=== PATIENT | female | born 1980 | race Caucasian/White ===

== ENCOUNTER 2019-02-27 13:59 | Inpatient (IN) ==
--- NOTE | 2019-02-27 14:05 | Emergency Department Note ---
Disposition Clinical Impression: IVDU (intravenous drug user) Sepsis Qualifiers: Sepsis type: sepsis due to unspecified organism Sepsis acute organ dysfunction status: unspecified Qualified Code(s): A41.9 - Sepsis, unspecified organism UTI (urinary tract infection) Qualifiers: Urinary tract infection type: acute cystitis Hematuria presence: with hematuria Qualified Code(s): N30.01 - Acute cystitis with hematuria Endocarditis Qualifiers: Endocarditis type: unspecified Chronicity: acute Qualified Code(s): I33.9 - Acute and subacute endocarditis, unspecified Disposition: Admitted As Inpatient Condition: Fair Forms: ED Satisfaction Letter, Work/School Release Time of Disposition: 18:40 General Adult HPI - General Stated complaint: vomiting Time Seen by Provider: 02/27/19 14:05 Source: patient Mode of arrival: ambulatory Limitations: no limitations Nursing Notes Reviewed: Yes Vital Signs Reviewed: Yes - History of Present Illness HPI Narrative: Patient is a 38-year-old female presenting with fever. Patient is known history of IV drug use specifically methamphetamines and heroin. Patient states for the past 4-5 days she has been having subjective fevers and chills, she has also been having nausea with vomiting, no hematemesis, she also describes diffuse abdominal pain greatest in the epigastric region described as sharp shooting in nature. She also has been having dysuria with urgency and frequency. No hematuria that she is aware of. She also describes diffuse chest pain and shortness of breath which at times makes it difficult for her to breathe. She also describes pleuritic pain. Last known methamphetamine IV drug use was actually 4 days ago. She denies alcohol use. She denies history of endocarditis in the past. No history of back pain. She states right now she has a mild headache and feels though her heart is racing. She has had mild cough with mild sputum production. She does smoke cigarettes. No neck pain. No history of meningitis. - Related Data Home Medications Medication Instructions Recorded Confirmed Suboxone 04/20/15 04/20/15 Allergies Allergy/AdvReac Type Severity Reaction Status Date / Time nitrofurantoin Allergy See Verified 02/27/19 15:22 [From Macrobid] Comments All systems ED: reviewed and negative except as stated. Review of Systems: As Per HPI Constitutional: Reports: fever, chills ENT ED: Denies: congestion Cardiovascular: Reports: chest pain, palpitations, dyspnea on exertion. Denies: syncope Respiratory: Reports: cough, dyspnea, sputum production. Denies: wheezes, hemoptysis Gastrointestinal: Reports: abdominal pain, nausea, vomiting. Denies: diarrhea, hematemesis, melena, hematochezia Genitourinary: Reports: urgency, dysuria, frequency. Denies: hematuria, discharge Musculoskeletal: Denies: back pain, neck pain Integumentary: Denies: rash Neurological: Reports: headache. Denies: weakness, numbness, paresthesias, confusion Endocrine: Reports: fatigue Past Medical History - Past Medical History Medical history: Reports: no medical history Psychiatric history: Reports: anxiety, bipolar, depression - Social History Smoking Status: Current every day smoker Smokeless Tobacco Status: No Alcohol use: Reports: none Drug use: Reports: none Physical Exam - General Limitations: no limitations General appearance: alert, anxious - Head Head exam: atraumatic, normocephalic, normal inspection - Eye Eye exam: Present: PERRL, EOMI - ENT ENT exam: mucous membranes dry - Neck Neck exam: Present: normal inspection, trachea midline - Chest Chest inspection: Present: normal inspection, symmetric chest wall rise - Respiratory Respiratory exam: Present: other (Patient with decreased breath sounds throughout, mild scattered wheezing without crackles) - Cardiovascular Cardiovascular exam: Present: normal rhythm, tachycardia - Abdominal Exam Abdominal exam: Present: soft, tenderness (To the midepigastric region, and diffusely throughout, no guarding, distention or rebound, no rigidity) - Extremities Exam Extremities exam: Present: normal inspection, full ROM. Absent: tenderness, pedal edema - Expanded Lower Extremity Exam Neurovascular/Tendon exam: Absent: motor deficit, sensory deficit, tendon deficit - Back Exam Back exam: Present: normal inspection, full ROM. Absent: tenderness - Neurological Exam Neurological exam: Present: alert, oriented X3 - Psychiatric Psychiatric exam: Present: normal mood, anxious - Skin Skin exam: Present: warm, dry, intact, normal color. Absent: rash, diaphoresis Course Vital Signs Temperature 99.7 F H 02/27/19 14:03 Pulse Rate 97 02/27/19 14:03 Respiratory Rate 18 02/27/19 14:03 Blood Pressure 109/55 02/27/19 14:03 O2 Sat by Pulse Oximetry 100 02/27/19 14:03 Temperature 99.7 F H 02/27/19 14:03 Pulse Rate 90 02/27/19 17:36 Respiratory Rate 16 02/27/19 17:36 Blood Pressure 100/58 02/27/19 17:36 O2 Sat by Pulse Oximetry 97 02/27/19 17:36 Oxygen Delivery Oxygen Delivery Room Air Medical Decision Making - MDM Narrative Medical decision making narrative: Patient is a 38-year-old female who is presenting with fever. Patient has known history of IV drug use. Patient has multiple complaints on examination most notably abdominal pain, nausea, vomiting and chest pain with shortness of breath. Patient has no history of endocarditis. Patient has no meningeal signs on examination. She is afebrile on arrival. She is tachycardic. She is normotensive. Patient was given a total of 30 mL/kg bolus as well as blood cultures drawn initially. Initial concern for endocarditis as well as intra- abdominal etiology, therefore vancomycin and Zosyn was started. Lactic acid was performed. CTA to rule out septic emboli was performed, no sign of pulmonary embolus or more intra-cardio or pulmonary etiology at this point. No sign of pneumonia. CT of the abdomen and pelvis with IV contrast was performed which shows improvement of gallbladder wall thickening, she has no right upper quadrant abdominal pain on my examination, negative Carpenter sign. As it is noted to be improved from prior, did not feel as though right upper quadrant ultrasound at this time was emergent. Laboratory work shows leukocytosis at 21, she also has acute kidney injury with elevated serum creatinine. Patient's LFT and lipase are within normal limits. Patient does show to have a urinary tract infection on urinalysis. Patient is covered with Zosyn for this. Patient is this point in time will be admitted for endocarditis until proven otherwise, urinary tract infection. No time has her blood pressure been hypotensive, she has not gone into septic shock. Patient will be admitted to the hospitalist service, patient has otherwise remained stable here in the ER. - Medical Records Medical records reviewed: Yes I reviewed the patient's medical records. - Lab Data Lab results reviewed: Yes I reviewed the patient's lab results. Result diagrams: 02/27/19 15:04 02/27/19 15:04 Lab Results 02/27/19 02/27/19 02/27/19 Range/Units 15:04 15:04 15:04 WBC 21.5 H (4.3-11.1) K/mcL RBC 3.67 L (3.82-4.97) M/mcL Hgb 10.1 L (11.5-15.4) g/dL Hct 30.8 L (35.3-44.9) % MCV 83.9 (83.0-100.0) fL MCH 27.5 L (28.0-33.3) pg MCHC 32.8 (31.6-35.5) g/dL RDW 13.7 (11.5-14.5) % Plt Count 226 (140-400) K/mcL MPV 10.3 (9.4-12.4) fL Seg Neutrophils % 78.0 % Band Neutrophils % 12.0 H (0-4) % Lymphocytes % 10.0 % Neutrophils # 19.4 H (1.6-8.9) K/mcL Lymphocytes # 2.2 (0.6-4.6) K/mcL Platelet Estimate Normal (Normal) PT 15.0 H (9.4-12.1) Seconds INR 1.3 APTT 34.9 (26.0-36.0) Seconds Sodium 130 L (136-145) mEq/L Potassium 3.7 (3.5-5.1) mEq/L Chloride 100 (98-107) mEq/L Carbon Dioxide 24 (23-29) mEq/L BUN 23 H (6-20) mg/dL Creatinine 1.26 H (0.60-1.20) mg/dL Est GFR ( Amer) 57 L (> 60) Est GFR (Non-Af Amer) 47 L (> 60) BUN/Creatinine Ratio 18 (6-26) Glucose 99 (70-105) mg/dL Calculated Osmolality 274 L (280-300) Lactic Acid (0.5-2.2) mmol/L Calcium 8.1 L (8.6-10.3) mg/dL Phosphorus 2.1 L (2.7-4.5) mg/dL Magnesium 1.7 (1.6-2.6) mg/dL Total Bilirubin 0.6 (0.3-1.0) mg/dL Direct Bilirubin 0.2 (0.0-0.2) mg/dL Indirect Bilirubin 0.4 (0.0-1.2) mg/dL AST 29 (13-39) Units/L ALT 24 (7-52) Units/L Alkaline Phosphatase 119 H (34-104) Units/L Troponin I 0.04 H* (< 0.04) ng/mL Serum Total Protein 6.2 L (6.4-8.9) g/dL Albumin 3.1 L (3.5-5.7) g/dL Globulin 3.1 (2.4-3.5) g/dL Albumin/Globulin Ratio 1.0 L (1.1-2.2) Lipase 13 (11-82) Units/L Urine Color (Yellow) Urine Clarity (Clear) Urine pH (5.0-8.0) pH Units Ur Specific [place] (1.010-1.025) Urine Protein (Neg-Trace) mg/dL Urine Glucose (UA) (Normal) mg/dL Urine Ketones (Negative) mg/dL Urine Blood (Negative) Urine Nitrite (Negative) Urine Bilirubin (Negative) Urine Urobilinogen (Normal) mg/dL Ur Leukocyte Esterase (Negative) Urine Microscopic RBC (0-3) per hpf Urine Microscopic WBC (0-3) per hpf Ur Squamous Epith Cells (None-Few) per lpf Urine Bacteria (None-Few) per hpf Hyaline Casts (None-Few) per lpf Ur Culture Indicated? (NO) Urine Test (Negative) 02/27/19 02/27/19 02/27/19 Range/Units 15:04 16:30 16:30 WBC (4.3-11.1) K/mcL RBC (3.82-4.97) M/mcL Hgb (11.5-15.4) g/dL Hct (35.3-44.9) % MCV (83.0-100.0) fL MCH (28.0-33.3) pg MCHC (31.6-35.5) g/dL RDW (11.5-14.5) % Plt Count (140-400) K/mcL MPV (9.4-12.4) fL Seg Neutrophils % % Band Neutrophils % (0-4) % Lymphocytes % % Neutrophils # (1.6-8.9) K/mcL Lymphocytes # (0.6-4.6) K/mcL Platelet Estimate (Normal) PT (9.4-12.1) Seconds INR APTT (26.0-36.0) Seconds Sodium (136-145) mEq/L Potassium (3.5-5.1) mEq/L Chloride (98-107) mEq/L Carbon Dioxide (23-29) mEq/L BUN (6-20) mg/dL Creatinine (0.60-1.20) mg/dL Est GFR ( Amer) (> 60) Est GFR (Non-Af Amer) (> 60) BUN/Creatinine Ratio (6-26) Glucose (70-105) mg/dL Calculated Osmolality (280-300) Lactic Acid 2.0 (0.5-2.2) mmol/L Calcium (8.6-10.3) mg/dL Phosphorus (2.7-4.5) mg/dL Magnesium (1.6-2.6) mg/dL Total Bilirubin (0.3-1.0) mg/dL Direct Bilirubin (0.0-0.2) mg/dL Indirect Bilirubin (0.0-1.2) mg/dL AST (13-39) Units/L ALT (7-52) Units/L Alkaline Phosphatase (34-104) Units/L Troponin I (< 0.04) ng/mL Serum Total Protein (6.4-8.9) g/dL Albumin (3.5-5.7) g/dL Globulin (2.4-3.5) g/dL Albumin/Globulin Ratio (1.1-2.2) Lipase (11-82) Units/L Urine Color Yellow (Yellow) Urine Clarity Cloudy A (Clear) Urine pH 6.5 (5.0-8.0) pH Units Ur Specific [place] 1.013 (1.010-1.025) Urine Protein 100 H (Neg-Trace) mg/dL Urine Glucose (UA) Normal (Normal) mg/dL Urine Ketones Negative (Negative) mg/dL Urine Blood Small H (Negative) Urine Nitrite Positive A (Negative) Urine Bilirubin Negative (Negative) Urine Urobilinogen Normal (Normal) mg/dL Ur Leukocyte Esterase Large H (Negative) Urine Microscopic RBC 0-3 (0-3) per hpf Urine Microscopic WBC TNTC H (0-3) per hpf Ur Squamous Epith Cells Moderate H (None-Few) per lpf Urine Bacteria Many H (None-Few) per hpf Hyaline Casts None Seen (None-Few) per lpf Ur Culture Indicated? YES A (NO) Urine Test Negative (Negative) - Radiology Data Radiology results reviewed: Yes I reviewed the patient's radiology results. Chest CTA 02/27/19 17:04 IMPRESSION: Unremarkable CTA chest with no evidence of pulmonary embolism or acute pulmonary abnormality. D/ / Diya Ruano MD / Diya Ruano MD Interpreting Provider: Diya Ruano MD Abdomen/Pelvis CT 02/27/19 17:16 IMPRESSION: Previously visualized gallbladder wall thickening and edema has improved but still present. No biliary dilatation. D/ / Meg Hester MD / Meg Hester MD Interpreting Provider: Meg Hester MD - EKG Data EKG #1 EKG attestation: Yes I reviewed and interpreted this EKG. EKG results narrative: EKG performed at 1440 ventricular rate of 89, regular rhythm, normal axis, no ST segment elevation, depression or T-wave changes. Intervals within normal limits.
[2019-02-27] MEDS ORDERED: Isovue-370 500 ML BOTTLE IVP ONE ×2 (14:29→16:18)
[2019-02-27] MEDS ORDERED: Ondansetron 4 MG/2 ML VIAL IVP ONE (14:29)
[2019-02-27] MEDS ORDERED: Piperacillin/Tazobactam 3.375 GM in 0.9 % Sodium Chloride Mini Bag 100 ML IVPB ONE (14:29)
[2019-02-27] MEDS: 0.9 % Sodium Chloride 1,000 ML IVC SCH ×3 (14:45→22:54)
[2019-02-27 15:32] LABS: Hematocrit 30.8 % (35.3-44.9); Hemoglobin 10.1 g/dL (11.5-15.4); Mean Corpuscular HGB Conc 32.8 g/dL (31.6-35.5); Mean Corpuscular Hemoglobin 27.5 pg (28.0-33.3); Mean Corpuscular Volume 83.9 fL (83.0-100.0); Mean Platelet Volume 10.3 fL (9.4-12.4); Platelet Count 226 K/mcL (140-400); Red Blood Count 3.67 M/mcL (3.82-4.97); Red Cell Distribution Width 13.7 % (11.5-14.5); White Blood Count 21.5 K/mcL (4.3-11.1)
[2019-02-27 15:45] LABS: INR 1.3
[2019-02-27 15:48] LABS: Activated Partial Thrombo Time 34.9 Seconds (26.0-36.0)
[2019-02-27 15:53] LABS: Albumin 3.1 g/dL (3.5-5.7); Bilirubin,Direct 0.2 mg/dL (0.0-0.2); Bilirubin,Indirect 0.4 mg/dL (0.0-1.2); Bilirubin,Total 0.6 mg/dL (0.3-1.0); Calcium 8.1 mg/dL (8.6-10.3); Globulin 3.1 g/dL (2.4-3.5); Magnesium 1.7 mg/dL (1.6-2.6); Phosphorous 2.1 mg/dL (2.7-4.5); Potassium 3.7 mEq/L (3.5-5.1); Total Protein 6.2 g/dL (6.4-8.9)
[2019-02-27 15:54] LABS: Troponin I 0.04 ng/mL (< 0.04)
[2019-02-27 16:02] LABS: Lymphocytes # 2.2 K/mcL (0.6-4.6); Neutrophils # 19.4 K/mcL (1.6-8.9); Platelet Estimate Normal (Normal)
--- NOTE | 2019-02-27 16:05 | Emergency Department Note ---
Disposition Clinical Impression: IVDU (intravenous drug user) Sepsis Qualifiers: Sepsis type: sepsis due to unspecified organism Sepsis acute organ dysfunction status: unspecified Qualified Code(s): A41.9 - Sepsis, unspecified organism UTI (urinary tract infection) Qualifiers: Urinary tract infection type: acute cystitis Hematuria presence: with hematuria Qualified Code(s): N30.01 - Acute cystitis with hematuria Endocarditis Qualifiers: Endocarditis type: unspecified Chronicity: acute Qualified Code(s): I33.9 - Acute and subacute endocarditis, unspecified Disposition: Admitted As Inpatient Condition: Fair Time of Disposition: 18:40 General Adult HPI - General Chief complaint: ED Abdominal Pain Stated complaint: vomiting Time Seen by Provider: 02/27/19 14:05 Source: patient, EMS Limitations: no limitations - History of Present Illness Pain Scale: 10 - Related Data Home Medications Medication Instructions Recorded Confirmed Buprenorphine HCl/Naloxone HCl 1 each SL BID 02/27/19 02/27/19 [Suboxone 8 mg-2 mg Sl Film] Allergies Allergy/AdvReac Type Severity Reaction Status Date / Time nitrofurantoin Allergy See Verified 02/27/19 15:22 [From Macrobid] Comments Past Medical History - Past Medical History Medical history: Reports: hepatitis Psychiatric history: Reports: anxiety, bipolar, depression - Social History Smoking Status: Current every day smoker Smokeless Tobacco Status: No Alcohol use: Reports: none Drug use: Reports: methamphetamine, IV Drug Use Physical Exam - General Limitations: no limitations General appearance: alert Course Vital Signs Temperature 99.7 F H 02/27/19 14:03 Pulse Rate 97 02/27/19 14:03 Respiratory Rate 18 02/27/19 14:03 Blood Pressure 109/55 02/27/19 14:03 O2 Sat by Pulse Oximetry 100 02/27/19 14:03 Temperature 101.7 F H 02/27/19 20:51 Pulse Rate 95 02/27/19 20:51 Respiratory Rate 26 02/27/19 20:51 Blood Pressure 91/55 02/27/19 20:51 O2 Sat by Pulse Oximetry 95 02/27/19 22:56 Oxygen Delivery Oxygen Delivery Room Air Medical Decision Making - Lab Data Result diagrams: 02/27/19 15:04 02/27/19 15:04 Lab Results 02/27/19 02/27/19 02/27/19 Range/Units 15:04 15:04 15:04 WBC 21.5 H (4.3-11.1) K/mcL RBC 3.67 L (3.82-4.97) M/mcL Hgb 10.1 L (11.5-15.4) g/dL Hct 30.8 L (35.3-44.9) % MCV 83.9 (83.0-100.0) fL MCH 27.5 L (28.0-33.3) pg MCHC 32.8 (31.6-35.5) g/dL RDW 13.7 (11.5-14.5) % Plt Count 226 (140-400) K/mcL MPV 10.3 (9.4-12.4) fL Seg Neutrophils % 78.0 % Band Neutrophils % 12.0 H (0-4) % Lymphocytes % 10.0 % Neutrophils # 19.4 H (1.6-8.9) K/mcL Lymphocytes # 2.2 (0.6-4.6) K/mcL Platelet Estimate Normal (Normal) PT 15.0 H (9.4-12.1) Seconds INR 1.3 APTT 34.9 (26.0-36.0) Seconds Sodium 130 L (136-145) mEq/L Potassium 3.7 (3.5-5.1) mEq/L Chloride 100 (98-107) mEq/L Carbon Dioxide 24 (23-29) mEq/L BUN 23 H (6-20) mg/dL Creatinine 1.26 H (0.60-1.20) mg/dL Est GFR ( Amer) 57 L (> 60) Est GFR (Non-Af Amer) 47 L (> 60) BUN/Creatinine Ratio 18 (6-26) Glucose 99 (70-105) mg/dL Calculated Osmolality 274 L (280-300) Lactic Acid (0.5-2.2) mmol/L Calcium 8.1 L (8.6-10.3) mg/dL Phosphorus 2.1 L (2.7-4.5) mg/dL Magnesium 1.7 (1.6-2.6) mg/dL Total Bilirubin 0.6 (0.3-1.0) mg/dL Direct Bilirubin 0.2 (0.0-0.2) mg/dL Indirect Bilirubin 0.4 (0.0-1.2) mg/dL AST 29 (13-39) Units/L ALT 24 (7-52) Units/L Alkaline Phosphatase 119 H (34-104) Units/L Troponin I 0.04 H* (< 0.04) ng/mL Serum Total Protein 6.2 L (6.4-8.9) g/dL Albumin 3.1 L (3.5-5.7) g/dL Globulin 3.1 (2.4-3.5) g/dL Albumin/Globulin Ratio 1.0 L (1.1-2.2) Lipase 13 (11-82) Units/L Urine Color (Yellow) Urine Clarity (Clear) Urine pH (5.0-8.0) pH Units Ur Specific [place] (1.010-1.025) Urine Protein (Neg-Trace) mg/dL Urine Glucose (UA) (Normal) mg/dL Urine Ketones (Negative) mg/dL Urine Blood (Negative) Urine Nitrite (Negative) Urine Bilirubin (Negative) Urine Urobilinogen (Normal) mg/dL Ur Leukocyte Esterase (Negative) Urine Microscopic RBC (0-3) per hpf Urine Microscopic WBC (0-3) per hpf Ur Squamous Epith Cells (None-Few) per lpf Urine Bacteria (None-Few) per hpf Hyaline Casts (None-Few) per lpf Ur Culture Indicated? (NO) Urine Test (Negative) 02/27/19 02/27/19 02/27/19 Range/Units 15:04 16:30 16:30 WBC (4.3-11.1) K/mcL RBC (3.82-4.97) M/mcL Hgb (11.5-15.4) g/dL Hct (35.3-44.9) % MCV (83.0-100.0) fL MCH (28.0-33.3) pg MCHC (31.6-35.5) g/dL RDW (11.5-14.5) % Plt Count (140-400) K/mcL MPV (9.4-12.4) fL Seg Neutrophils % % Band Neutrophils % (0-4) % Lymphocytes % % Neutrophils # (1.6-8.9) K/mcL Lymphocytes # (0.6-4.6) K/mcL Platelet Estimate (Normal) PT (9.4-12.1) Seconds INR APTT (26.0-36.0) Seconds Sodium (136-145) mEq/L Potassium (3.5-5.1) mEq/L Chloride (98-107) mEq/L Carbon Dioxide (23-29) mEq/L BUN (6-20) mg/dL Creatinine (0.60-1.20) mg/dL Est GFR ( Amer) (> 60) Est GFR (Non-Af Amer) (> 60) BUN/Creatinine Ratio (6-26) Glucose (70-105) mg/dL Calculated Osmolality (280-300) Lactic Acid 2.0 (0.5-2.2) mmol/L Calcium (8.6-10.3) mg/dL Phosphorus (2.7-4.5) mg/dL Magnesium (1.6-2.6) mg/dL Total Bilirubin (0.3-1.0) mg/dL Direct Bilirubin (0.0-0.2) mg/dL Indirect Bilirubin (0.0-1.2) mg/dL AST (13-39) Units/L ALT (7-52) Units/L Alkaline Phosphatase (34-104) Units/L Troponin I (< 0.04) ng/mL Serum Total Protein (6.4-8.9) g/dL Albumin (3.5-5.7) g/dL Globulin (2.4-3.5) g/dL Albumin/Globulin Ratio (1.1-2.2) Lipase (11-82) Units/L Urine Color Yellow (Yellow) Urine Clarity Cloudy A (Clear) Urine pH 6.5 (5.0-8.0) pH Units Ur Specific [place] 1.013 (1.010-1.025) Urine Protein 100 H (Neg-Trace) mg/dL Urine Glucose (UA) Normal (Normal) mg/dL Urine Ketones Negative (Negative) mg/dL Urine Blood Small H (Negative) Urine Nitrite Positive A (Negative) Urine Bilirubin Negative (Negative) Urine Urobilinogen Normal (Normal) mg/dL Ur Leukocyte Esterase Large H (Negative) Urine Microscopic RBC 0-3 (0-3) per hpf Urine Microscopic WBC TNTC H (0-3) per hpf Ur Squamous Epith Cells Moderate H (None-Few) per lpf Urine Bacteria Many H (None-Few) per hpf Hyaline Casts None Seen (None-Few) per lpf Ur Culture Indicated? YES A (NO) Urine Test Negative (Negative) Attestation Statement - Attestation Attestation: I examined this patient and my medical decision-making was reviewed with the Resident Physician. I agree with the documented findings, disposition and treatment plan as described except to the extent set forth below. Patient 38-year-old female presents to start with chief complaint of vomiting and generalized malaise. The patient reports she has a IV drug user and last used intravenous methamphetamine approximal 4 days ago. Patient states that she has had multiple episodes of nausea and vomiting Exam patient's awake alert no acute distress although does appear ill. Medical decision management patient underwent laboratory testing and imaging and the plan admit the patient to the hospital service for endocarditis patient was started on broad-spectrum antibiotic coverage in the ER. I personally supervised and was present for the morgan/critical portions of the following procedures completed by the resident:EKG.
[2019-02-27] MEDS ORDERED: Calcium Gluconate 1gm/50mL 1 GM/50 ML BAG IVPB ONE ×2 (16:18→18:50)
[2019-02-27 16:47] LABS: Bilirubin,Urine Negative (Negative); Blood,Urine Small (Negative); Clarity,Urine Cloudy (Clear); Color,Urine Yellow (Yellow); Glucose,Urine (UA) Normal (Normal); Ketones,Urine Negative (Negative); Leukocyte Esterase,Urine Large (Negative); Nitrite,Urine Positive (Negative); PH,Urine 6.5 pH Units (5.0-8.0); Protein,Urine 100 mg/dL (Neg-Trace); Specific Gravity,Urine 1.013 (1.010-1.025); Urobilinogen,Urine Normal (Normal)
[2019-02-27 16:49] LABS: Bacteria,Urine Many per hpf (None-Few); Hyaline Casts,Urine None Seen per lpf (None-Few); WBC,Urine TNTC per hpf (0-3)
[2019-02-27 17:19] LABS: Squamous Epithelial Cell,Urine Moderate per lpf (None-Few)
[2019-02-27 17:20] LABS: RBC,Urine 0-3 per hpf (0-3)
[2019-02-27] MEDS ORDERED: Aspirin 81 MG TAB.CHEW PO ONE (17:38)
--- NOTE | 2019-02-27 20:18 | Internal Med History&Physical ---
<Sherley Khalil - Last Filed: 02/27/19 22:09> Date of Encounter: 02/27/19 Time of Encounter: 20:16 Internal Medicine - H&P: HPI Chief complaint: fever and body aches Admitted From: Emergency Dept Plans for Post Hospital Care: Home History of present illness: Ms. Etienne is a 38 year old female with past medical history of hepatitis A, B, C, IV drug use who presented to [facility] complaining of fever in body aches. She reports that symptoms started 4 days ago. She does not know her fever temperature. Additionally she reports having some chills, shortness of breath, nausea, abdominal pain, malaise. She does have chest pain diffuse across her chest with no other radiation. Taking a deep breath worsens the pain. Sitting forward improves the pain. She has dysuria with foul-smelling urine and darker colored urine. Denies sick contacts or recent hospitalizations. She admits to using methamphetamines and IV drug use. She last injected methamphetamines 4 days ago. She mostly injects in her hands. She has never been diagnosed with endocarditis, bacteremia, or skin infection secondary to her IV drug use. She is a current smoker. She is a full code. Initial vitals in ED: 99.7F, HR 97, RR 18, BP 109/55, SpO2 100% on room air. WBC 21.5, hemoglobin 10.1, sodium 130, creatinine 1.26, osmolality 274, phosphorus 2.1, calcium 8.1, lactic acid 2.0, total bilirubin 2.6, alkaline phosphatase 119, troponin 0.04, lipase 13. Urinalysis with nitrite, large leukocyte esterase, WBC TNTC. -Chest CTA negative for pulmonary embolism, unremarkable. -Abdomen/pelvis CT showing gallbladder wall thickening and edema improved from prior but still present. No biliary dilatation. In the ED she was given IVF, Zosyn, vancomycin, calcium gluconate. Blood culture and urine cultures were collected. Past Med Surg Social Fam HX - Past Medical History Attestation: Yes The following information was validated with the patient. Source: patient Medical history: hepatitis Additional medical history: Hep A,B,C Psychiatric history: anxiety, bipolar, depression - Past Surgical History Surgical History: non-contributory Additional surgical history: tubal - Social History Smoking Status: Current every day smoker Smokeless Tobacco Status: No Alcohol use: none Drug use: methamphetamine, IV Drug Use Internal Medicine - H&P: Meds Buprenorphine HCl/Naloxone HCl [Suboxone 8 mg-2 mg Sl Film] 1 each SL BID 02/27/19 [History] Allergy/AdvReac Type Severity Reaction Status Date / Time nitrofurantoin Allergy See Verified 02/27/19 15:22 [From Macrobid] Comments All Systems PM: A 10-system review of systems was performed and is negative for pertinent findings except as documented above in the HPI. - Constitutional Constitutional: chills, fatigue, fever(s), malaise - EENT Eyes: no change in vision - Cardiovascular Cardiovascular ROS IM: chest pain, no dyspnea on exertion, no edema, no palpitations, no syncope - Respiratory Respiratory: dyspnea, no cough, no wheezing, no excessive phlegm production - Gastrointestinal Gastrointestinal: abdominal pain, nausea, no diarrhea, no vomiting - Genitourinary Genitourinary: dysuria, no urinary frequency - Musculoskeletal Musculoskeletal ROS IM: muscle cramps, myalgias, no joint swelling - Integumentary Integumentary IM: no rash, no skin ulcer - Neurological Neurological ROS: no dizziness, no frequent falls, no headache(s) - Psychiatric Psychiatric: no confusion - Constitutional Vitals: Temp Pulse Resp BP Pulse Ox 99.7 F H 90 16 100/58 97 02/27/19 14:03 02/27/19 17:36 02/27/19 17:36 02/27/19 17:36 02/27/19 17:36 Exam: Gen.: Vitals noted. No acute distress. AAOx3 HEENT: oropharynx clear, Normocephalic, atraumatic Neck: Supple. No adenopathy. Cardiac: RRR, no murmur, +S1/S2 Pulmonary: CTA bilaterally, no wheezes, rales or rhonchi, equal chest expansion Abdomen: soft, tender epigastric, LLQ, RUQ, Bowel sounds noted, no guarding Back: b/l CVA tender MSK: ROM intact, no joint swelling noted Extremities: no BLE edema, nontender calf, no cyanosis or clubbing Neuro: A&Ox3, moves all extremities, no focal deficits Psych: Appropriate mood and behavior Internal Med - H&P Results - Labs CBC & Chem 7: 02/27/19 15:04 02/27/19 15:04 Labs: Short CBC 02/27/19 Range/Units 15:04 WBC 21.5 H (4.3-11.1) K/mcL Hgb 10.1 L (11.5-15.4) g/dL Hct 30.8 L (35.3-44.9) % Plt Count 226 (140-400) K/mcL Neutrophils # 19.4 H (1.6-8.9) K/mcL BMP 02/27/19 15:04 Sodium 130 L Potassium 3.7 Chloride 100 Carbon Dioxide 24 BUN 23 H Creatinine 1.26 H Glucose 99 Calcium 8.1 L Cardiac Enzymes 02/27/19 Range/Units 15:04 Troponin I 0.04 H* (< 0.04) ng/mL Liver Function 02/27/19 Range/Units 15:04 Total Bilirubin 0.6 (0.3-1.0) mg/dL Direct Bilirubin 0.2 (0.0-0.2) mg/dL AST 29 (13-39) Units/L ALT 24 (7-52) Units/L Alkaline Phosphatase 119 H (34-104) Units/L Albumin 3.1 L (3.5-5.7) g/dL Urine 02/27/19 Range/Units 16:30 Urine Color Yellow (Yellow) Urine Clarity Cloudy A (Clear) Urine pH 6.5 (5.0-8.0) pH Units Ur Specific [place] 1.013 (1.010-1.025) Urine Protein 100 H (Neg-Trace) mg/dL Urine Glucose (UA) Normal (Normal) mg/dL - Impressions ITS Impressions Chest CTA 02/27/19 17:04 IMPRESSION: Unremarkable CTA chest with no evidence of pulmonary embolism or acute pulmonary abnormality. D/ / Diya Ruano MD / Diya Ruano MD Interpreting Provider: Diya Ruano MD Abdomen/Pelvis CT 02/27/19 17:16 IMPRESSION: Previously visualized gallbladder wall thickening and edema has improved but still present. No biliary dilatation. D/ / Meg Hester MD / Meg Hester MD Interpreting Provider: Meg Hester MD - Assessment and Plan (1) Sepsis Current Visit: Yes Status: Acute Assessment and plan: Patient presented on admission septic meeting 2 SIRS criteria: HR 97, WBC 21.5, temp 101.7, lactic acid 2.0. In the ED she was given 1L IVF, Zosyn, vancomycin, calcium gluconate. Blood culture and urine cultures were collected. -Source at this time appears to be urinary tract infection. High risk for bacteremia given IVDU. Patient is having diffuse body aches including bilateral CVA tenderness but may be due to her being septic. CT abd/pelvis shows no sam dence of pyelonephritis. Given her having fevers chills, body aches concerned possible influenza however probably unlikely due to early in the season. Will still test for influenza a and B. No evidence of PE, pericarditis, septic emboli, pneumonia, cholecystitis on imaging. -total bilirubin 0.6, alkaline phosphatase 119, lipase 13, creatinine 1.26. -Urinalysis with nitrite, large leukocyte esterase, WBC TNTC. -Chest CTA negative for pulmonary embolism, unremarkable. -Abdomen/pelvis CT showing gallbladder wall thickening and edema improved from prior but still present. No biliary dilatation. plan: -continue ceftriaxone and vancomycin for possible bacteremia and UTI -echocardiogram ordered -repeat blood culture in AM -continue 1L IVF to meet 30ml/kg -await urine and blood cultures -Tylenol PRN fever and pain Qualifiers: Sepsis type: sepsis due to unspecified organism Sepsis acute organ dysfunction status: unspecified Qualified Code(s): A41.9 - Sepsis, unspecified organism (2) UTI (urinary tract infection) Current Visit: Yes Status: Acute Assessment and plan: Patient symptoms concerning for urinary tract infection and her urinalysis correlates with a UTI. She has had history of UTI for the past has not had one this year. No recent urinary catheterization or ureteral procedures. CT abdomen/pelvis show no evidence of pyelonephritis. She is no history of pyelonephritis. -Urinalysis with nitrite, large leukocyte esterase, WBC TNTC. -Abdomen/pelvis CT showing gallbladder wall thickening and edema improved from prior but still present. No biliary dilatation. -On exam she does have bilateral CVA tenderness and pelvic tenderness. However, she has diffuse tenderness of her body. plan: -continue ceftriaxone -await urine culture Qualifiers: Urinary tract infection type: acute cystitis Hematuria presence: with hematuria Qualified Code(s): N30.01 - Acute cystitis with hematuria (3) Elevated troponin Current Visit: Yes Status: Acute Assessment and plan: Patient with an elevated troponin of 0.04. -Etiology is unclear but she does happen acute kidney injury. CP is improved by leaning forward. No evidence of EKG changes indicating pericarditis or ACS. -EKG showing NSR, no ST or T wave changes indicating ischemia. -Patient having some chest pain that is worsened by taking a deep breath. plan: -trend troponin -continue cardiac telemetry -continue monitor (4) Low phosphate levels Current Visit: Yes Status: Acute Assessment and plan: Patient with low phosphorus level of 2.1 -likely secondary to poor oral intake -replace with neutro phos -will recheck in a.m. (5) Hyponatremia Current Visit: Yes Status: Acute Assessment and plan: Mild Hypotonic Hyponatremia that is likely secondary to poor oral intake of fluids and food. Patient was given 1L IVF in ED. -Sodium 130 -osmolality 274 plan: -continue 1L IVF -will recheck sodium in a.m. (6) NARENDRA (acute kidney injury) Current Visit: Yes Status: Acute Assessment and plan: Acute kidney injury that is likely prerenal in the setting of sepsis and UTI. -Creatinine 1.6 -baseline creatinine 0.7-0.8 -Urinalysis with nitrite, large leukocyte esterase, WBC TNTC. plan: -continue IVF -monitor serum creatinine -monitor I&O -continue renal protective strategy including avoid nephrotoxic agents and renal dose medications (7) Anemia Current Visit: Yes Status: Acute Assessment and plan: Patient with normocytic anemia. -MCV a 3.9, normal -RDW 13.7 -Hemoglobin baseline 13 -no obvious active bleeding plan: -iron studies, ferritin odered -continue monitor for bleeding (8) IVDU (intravenous drug user) Current Visit: Yes Status: Acute Assessment and plan: History of IV drug use injecting methamphetamines into her hands primarily. She last injected 4 days ago. She denies ever having endocarditis or any other infection associated with IV drug use. (9) DVT prophylaxis Current Visit: Yes Status: Acute Assessment and plan: Heparin SQ - Time Spent With Patient Total time spent is greater than 50% in coordination of care (as documented) at patient's floor/unit and/or counseling patient: <Jody Napier - Last Filed: 02/27/19 22:52> Date of Encounter: 02/27/19 All Systems PM: A 10-system review of systems was performed and is negative for pertinent findings except as documented above in the HPI. - Constitutional Vitals: Temp Pulse Resp BP Pulse Ox 101.7 F H 95 26 91/55 95 02/27/19 20:51 02/27/19 20:51 02/27/19 20:51 02/27/19 20:51 02/27/19 20:51 Internal Med - H&P Results - Labs CBC & Chem 7: 02/27/19 15:04 02/27/19 15:04 Labs: Short CBC 02/27/19 Range/Units 15:04 WBC 21.5 H (4.3-11.1) K/mcL Hgb 10.1 L (11.5-15.4) g/dL Hct 30.8 L (35.3-44.9) % Plt Count 226 (140-400) K/mcL Neutrophils # 19.4 H (1.6-8.9) K/mcL BMP 02/27/19 15:04 Sodium 130 L Potassium 3.7 Chloride 100 Carbon Dioxide 24 BUN 23 H Creatinine 1.26 H Glucose 99 Calcium 8.1 L Cardiac Enzymes 02/27/19 02/27/19 Range/Units 15:04 21:28 Troponin I 0.04 H* < 0.03 (< 0.04) ng/mL Liver Function 02/27/19 Range/Units 15:04 Total Bilirubin 0.6 (0.3-1.0) mg/dL Direct Bilirubin 0.2 (0.0-0.2) mg/dL AST 29 (13-39) Units/L ALT 24 (7-52) Units/L Alkaline Phosphatase 119 H (34-104) Units/L Albumin 3.1 L (3.5-5.7) g/dL Urine 02/27/19 Range/Units 16:30 Urine Color Yellow (Yellow) Urine Clarity Cloudy A (Clear) Urine pH 6.5 (5.0-8.0) pH Units Ur Specific [place] 1.013 (1.010-1.025) Urine Protein 100 H (Neg-Trace) mg/dL Urine Glucose (UA) Normal (Normal) mg/dL - Impressions ITS Impressions Chest CTA 02/27/19 17:04 IMPRESSION: Unremarkable CTA chest with no evidence of pulmonary embolism or acute pulmonary abnormality. D/ / Diya Ruano MD / Diya Ruano MD Interpreting Provider: Diya Ruano MD Abdomen/Pelvis CT 02/27/19 17:16 IMPRESSION: Previously visualized gallbladder wall thickening and edema has improved but still present. No biliary dilatation. D/ / Meg Hester MD / Meg Hester MD Interpreting Provider: Meg Hester MD - Assessment and Plan (1) Sepsis Current Visit: Yes Status: Acute Qualifiers: Sepsis type: sepsis due to unspecified organism Sepsis acute organ dysfunction status: unspecified Qualified Code(s): A41.9 - Sepsis, unspecified organism (2) UTI (urinary tract infection) Current Visit: Yes Status: Acute Qualifiers: Urinary tract infection type: acute cystitis Hematuria presence: with hematuria Qualified Code(s): N30.01 - Acute cystitis with hematuria (3) Elevated troponin Current Visit: Yes Status: Acute (4) Low phosphate levels Current Visit: Yes Status: Acute (5) Hyponatremia Current Visit: Yes Status: Acute (6) NARENDRA (acute kidney injury) Current Visit: Yes Status: Acute (7) Anemia Current Visit: Yes Status: Acute (8) IVDU (intravenous drug user) Current Visit: Yes Status: Acute (9) DVT prophylaxis Current Visit: Yes Status: Acute - Time Spent With Patient Total time spent is greater than 50% in coordination of care (as documented) at patient's floor/unit and/or counseling patient: - Attending Attestation I performed a history and physical exam of the patient and discussed management with the resident. I reviewed the resident's note and agree with the documented findings and plan of care. Orin Mackay Etienne is a 38-year-old woman with substance use disorder who presented to the emergency room with a complaint of generalized body aches, myalgias, arthralgias, headache, chest pain and shortness of breath. She was found febrile and tachycardic. Lab work revealed leukocytosis of 21.5, Hgb 10.5, troponin 0.04. EKG showing normal sinus rhythm. Imaging studies were unremarkable. Physical exam was notable for a disheveled woman who appears older than her stated age lying in bed in notable discomfort. Tachycardic with a slight apical systolic murmur detected. No wheezes, rales or rhonchi. Will admit as inpatient. Suspect the patient is bacteremic. Given her IVDU, will need to ensure infective endocarditis is not at play with resultant peripheral complications. She also has signs of a uti. Advise to get multiple sets of blood cultures, fluid resuscitation, start analgesics/antipyretics as needed and empiric antibiotics of vancomycin/ceftriaxone. Obtain a TTE in the morning. GEORGE ENAMORADO.
[2019-02-27] MEDS ORDERED: Ondansetron ODT 4 MG TAB.RAPDIS SL PRN (20:27)
[2019-02-27] MEDS ORDERED: Naloxone 0.4 MG/ML INJ IVP PRN (20:27)
[2019-02-27] MEDS ORDERED: 0.9 % Sodium Chloride 1,000 ML IVC ONE (20:30)
[2019-02-27] MEDS: *HR* Heparin 5,000 UNIT/ML VIAL SQ SCH (21:37)
[2019-02-27] MEDS: cefTRIAXone 2,000 MG in Water for inj. (sterile) 20 ML IVP SCH (23:21)
[2019-02-28 04:20] LABS: Acinetobacter baumannii by PCR Not Detected (Not Detect); Enterococcus by PCR Not Detected (Not Detect); Staphylococcus aureus by PCR Not Detected (Not Detect); Staphylococcus by PCR Not Detected (Not Detect); Streptococcus agalactiae(B)PCR Not Detected (Not Detect); Streptococcus by PCR Not Detected (Not Detect); Streptococcus pneumoniae PCR Not Detected (Not Detect); Streptococcus pyogenes (A) PCR Not Detected (Not Detect); blaKPC Carbapenem-Resist Gene Not Detected (Not Detect); mecA Methicillin-Resist Gene Not Detected (Not Detect); vanA/B Vancomycin-Resist Genes Not Detected (Not Detect)
[2019-02-28 04:21] LABS: Candida albicans by PCR Not Detected (Not Detect); Candida glabrata by PCR Not Detected (Not Detect); Candida krusei by PCR Not Detected (Not Detect); Candida parapsilosis by PCR Not Detected (Not Detect); Candida tropicalis by PCR Not Detected (Not Detect); Enterobacter cloacae Cmplx PCR Not Detected (Not Detect); Escherichia coli by PCR DETECTED (Not Detect); Klebsiella oxytoca by PCR Not Detected (Not Detect); Klebsiella pneumoniae by PCR Not Detected (Not Detect); Proteus by PCR Not Detected (Not Detect); Pseudomonas aeruginosa by PCR Not Detected (Not Detect); Serratia marcescens by PCR Not Detected (Not Detect)
[2019-02-28] MEDS: 0.9 % Sodium Chloride 1,000 ML IVC SCH (04:49)
[2019-02-28] MEDS: *HR* Heparin 5,000 UNIT/ML VIAL SQ SCH ×3 (05:50→23:10)
[2019-02-28 05:53] LABS: Basophils % 0.1 %; Eosinophils # 0.1 K/mcL (0.0-0.6); Eosinophils % 0.5 %; Hematocrit 28.4 % (35.3-44.9); Hemoglobin 9.2 g/dL (11.5-15.4); Immature Granulocytes % 2.9 % (0-4); Lymphocytes # 1.1 K/mcL (0.6-4.6); Lymphocytes % 6.2 %; Mean Corpuscular HGB Conc 32.4 g/dL (31.6-35.5); Mean Corpuscular Hemoglobin 27.9 pg (28.0-33.3); Mean Corpuscular Volume 86.1 fL (83.0-100.0); Mean Platelet Volume 10.6 fL (9.4-12.4); Monocytes # 0.6 K/mcL (0.0-1.3); Monocytes % 3.3 %; Platelet Count 225 K/mcL (140-400); Red Cell Distribution Width 13.9 % (11.5-14.5); White Blood Count 17.4 K/mcL (4.3-11.1)
[2019-02-28 05:54] LABS: Immature Reticulocyte % 12.6 % (11.0-38.0); Retculocyte # 0.03 M/mcL (0.05-0.10); Reticulocyte % 1.1 % (1.6-2.8)
[2019-02-28 06:05] LABS: Neutrophils # 15.1 K/mcL (1.6-8.9)
[2019-02-28 06:10] LABS: Albumin 2.5 g/dL (3.5-5.7); Albumin/Globulin Ratio 0.9 (1.1-2.2); Bilirubin,Total 0.5 mg/dL (0.3-1.0); Calcium 6.9 mg/dL (8.6-10.3); Globulin 2.8 g/dL (2.4-3.5); Phosphorous 4.1 mg/dL (2.7-4.5); Potassium 3.8 mEq/L (3.5-5.1); Total Protein 5.3 g/dL (6.4-8.9)
[2019-02-28 06:31] LABS: Anisocytosis 1+ (Not Present); Ferritin 104 ng/mL (10-120); Iron < 10 mcg/dL (50-170); Platelet Estimate Normal (Normal); Transferrin 150 mg/dL (203-362)
[2019-02-28 08:50] LABS: VBG Ionized Calcium 1.04 mmol/L (1.15-1.35)
[2019-02-28] MEDS ORDERED: Aminoglycoside Consult 1 EACH MC ONE (10:42)
[2019-02-28] MEDS: Acetaminophen 325 MG TABLET PO PRN (14:00)
--- NOTE | 2019-02-28 15:00 | Internal Med Progress Note ---
Hospitalist Progress Note - Encounter Date of Encounter: 02/28/19 Time of Encounter: 14:59 - Subjective Interval History: Patient seen and examined. Patient has no acute complaints today. She feels very tired and weak. Patient denies chest pain or shortness of breath. Patient denies urinary symptoms. - Exam Vitals: Temp Pulse Resp BP Pulse Ox 102.7 F H 83 18 86/53 92 02/28/19 14:38 02/28/19 12:03 02/28/19 12:03 02/28/19 12:03 02/28/19 12:03 Exam: Gen.: Vitals noted. No acute distress. AAOx3 HEENT: oropharynx clear, Normocephalic, atraumatic Neck: Supple. No adenopathy. Cardiac: RRR, no murmur, +S1/S2 Pulmonary: CTA bilaterally, no wheezes, rales or rhonchi, equal chest expansion Abdomen: soft, tender epigastric, LLQ, RUQ, Bowel sounds noted, no guarding Back: b/l CVA tender MSK: ROM intact, no joint swelling noted Extremities: no BLE edema, nontender calf, no cyanosis or clubbing Neuro: A&Ox3, moves all extremities, no focal deficits Psych: Appropriate mood and behavior - Assessment and Plan (1) Sepsis Current Visit: Yes Status: Acute Assessment and Plan: Patient presented on admission septic meeting 2 SIRS criteria: HR 97, WBC 21.5, temp 101.7, lactic acid 2.0. In the ED she was given 1L IVF, Zosyn, vancomycin, calcium gluconate. Blood culture and urine cultures were collected. -Source at this time appears to be urinary tract infection. High risk for bacteremia given IVDU. Patient is having diffuse body aches including bilateral CVA tenderness but may be due to her being septic. CT abd/pelvis shows no evidence of pyelonephritis. -Urinalysis with nitrite, large leukocyte esterase, WBC TNTC. -Chest CTA negative for pulmonary embolism, unremarkable. -Abdomen/pelvis CT showing gallbladder wall thickening and edema improved from prior but still present. No biliary dilatation. -Preliminary blood cultures growing gram negative bacili E. Coli -Patient did have a repeat fever of 102.7 while on vanc and rocephin -BP still on the lower side with SBP 80s -leukocytois improving plan: -continue ceftriaxone and vancomycin for now -monitor for repeat fevers -echocardiogram ordered; endocarditis less likley with gram negative growing in blood but not impossible -give another bolus of fluids -await urine and blood cultures -Tylenol PRN fever and pain (2) UTI (urinary tract infection) Current Visit: Yes Status: Acute Assessment and Plan: Patient symptoms concerning for urinary tract infection and her urinalysis correlates with a UTI. She has had history of UTI for the past has not had one this year. No recent urinary catheterization or ureteral procedures. CT abdomen/pelvis show no evidence of pyelonephritis. She is no history of pyelonephritis. -Urinalysis with nitrite, large leukocyte esterase, WBC TNTC. -Abdomen/pelvis CT showing gallbladder wall thickening and edema improved from prior but still present. No biliary dilatation. plan: -continue ceftriaxone -await urine culture (3) Elevated troponin Current Visit: Yes Status: Acute Assessment and Plan: Patient with an elevated troponin of 0.04. -Etiology is unclear but she does happen acute kidney injury. CP is improved by leaning forward. No evidence of EKG changes indicating pericarditis or ACS. -EKG showing NSR, no ST or T wave changes indicating ischemia. -Patient's chest pain resolved -troponin trended down Plan: telemetry (4) Low phosphate levels Current Visit: Yes Status: Acute Assessment and Plan: Patient with low phosphorus level of 2.1 -likely secondary to poor oral intake -normalized after treatment (5) Hyponatremia Current Visit: Yes Status: Acute Assessment and Plan: Mild Hypotonic Hyponatremia that is likely secondary to poor oral intake of fluids and food. Patient was given 1L IVF in ED. -improved Plan: monitor (6) NARENDRA (acute kidney injury) Current Visit: Yes Status: Acute Assessment and Plan: Acute kidney injury that is likely prerenal in the setting of sepsis and UTI. -Creatinine 1.6 -baseline creatinine 0.7-0.8 -Urinalysis with nitrite, large leukocyte esterase, WBC TNTC. plan: -continue IVF -monitor serum creatinine -monitor I&O -continue renal protective strategy including avoid nephrotoxic agents and renal dose medications (7) Anemia Current Visit: Yes Status: Acute Assessment and Plan: Patient with normocytic anemia. -MCV a 3.9, normal -RDW 13.7 -Hemoglobin baseline 13 -no obvious active bleeding -ferritin low; transferrin and iron low plan: -ferrous sulfate (8) IVDU (intravenous drug user) Current Visit: Yes Status: Acute Assessment and Plan: History of IV drug use injecting methamphetamines into her hands primarily. She last injected 4 days ago. She denies ever having endocarditis or any other inf ection associated with IV drug use. (9) DVT prophylaxis Current Visit: Yes Status: Acute Assessment and Plan: Heparin SQ - Time Spent with Patient Total time spent is greater than 50% in coordination of care (as documented) at patient's floor/unit and/or counseling patient: 40 minutes Plan of Care Discussed with: patient Internal Medicine: Result - Labs CBC & Chem 7: 02/28/19 04:16 02/28/19 04:16 Labs: Short CBC 02/27/19 02/28/19 Range/Units 15:04 04:16 WBC 21.5 H 17.4 H (4.3-11.1) K/mcL Hgb 10.1 L 9.2 L (11.5-15.4) g/dL Hct 30.8 L 28.4 L (35.3-44.9) % Plt Count 226 225 (140-400) K/mcL Neutrophils # 19.4 H 15.1 H (1.6-8.9) K/mcL BMP 02/27/19 02/28/19 15:04 04:16 Sodium 130 L 136 Potassium 3.7 3.8 Chloride 100 106 Carbon Dioxide 24 19 L BUN 23 H 22 H Creatinine 1.26 H 1.26 H Glucose 99 94 Calcium 8.1 L 6.9 L Cardiac Enzymes 02/27/19 02/27/19 Range/Units 15:04 21:28 Troponin I 0.04 H* < 0.03 (< 0.04) ng/mL Liver Function 02/27/19 02/28/19 Range/Units 15:04 04:16 Total Bilirubin 0.6 0.5 (0.3-1.0) mg/dL Direct Bilirubin 0.2 (0.0-0.2) mg/dL AST 29 24 (13-39) Units/L ALT 24 21 (7-52) Units/L Alkaline Phosphatase 119 H 136 H (34-104) Units/L Albumin 3.1 L 2.5 L (3.5-5.7) g/dL Urine 02/27/19 Range/Units 16:30 Urine Color Yellow (Yellow) Urine Clarity Cloudy A (Clear) Urine pH 6.5 (5.0-8.0) pH Units Ur Specific [place] 1.013 (1.010-1.025) Urine Protein 100 H (Neg-Trace) mg/dL Urine Glucose (UA) Normal (Normal) mg/dL - ABG Interpretation ABG results: PT/INR, D-dimer PT 15.0 Seconds (9.4-12.1) H 02/27/19 15:04 - Impressions Impressions Chest CTA 02/27/19 17:04 IMPRESSION: Unremarkable CTA chest with no evidence of pulmonary embolism or acute pulmonary abnormality. D/ / Diya Ruano MD / Diya Ruano MD Interpreting Provider: Diya Ruano MD Abdomen/Pelvis CT 02/27/19 17:16 IMPRESSION: Previously visualized gallbladder wall thickening and edema has improved but still present. No biliary dilatation. D/ / Meg Hester MD / Meg Hester MD Interpreting Provider: Meg Hester MD Consult Discharge Plan - Plan Referrals: NONE,PCP [Primary Care Provider] - (1) Sepsis Qualifiers: Sepsis type: sepsis due to unspecified organism Sepsis acute organ dysfunction status: unspecified Qualified Code(s): A41.9 - Sepsis, unspecified organism (2) UTI (urinary tract infection) Qualifiers: Urinary tract infection type: acute cystitis Hematuria presence: with hematuria Qualified Code(s): N30.01 - Acute cystitis with hematuria
[2019-02-28] MEDS ORDERED: 0.9 % Sodium Chloride 1,000 ML IVC ONE (15:05)
[2019-02-28] MEDS: *HR* Buprenorphine HCl 8 MG TAB.SUBL SL SCH (22:06)
[2019-02-28] MEDS: cefTRIAXone 2,000 MG in Water for inj. (sterile) 20 ML IVP SCH (23:10)
[2019-03-01] MEDS: Acetaminophen 325 MG TABLET PO PRN ×3 (00:41→18:50)
[2019-03-01] MEDS ORDERED: 0.9 % Sodium Chloride 500 ML IVC ONE (05:15)
[2019-03-01] MEDS: *HR* Heparin 5,000 UNIT/ML VIAL SQ SCH ×4 (05:24→20:25)
[2019-03-01 05:54] LABS: Basophils % 0.3 %; Eosinophils # 0.2 K/mcL (0.0-0.6); Eosinophils % 1.5 %; Hematocrit 26.6 % (35.3-44.9); Hemoglobin 8.8 g/dL (11.5-15.4); Immature Granulocytes % 1.1 % (0-4); Lymphocytes % 9.9 %; Mean Corpuscular HGB Conc 33.1 g/dL (31.6-35.5); Mean Corpuscular Hemoglobin 27.8 pg (28.0-33.3); Mean Corpuscular Volume 84.2 fL (83.0-100.0); Mean Platelet Volume 9.9 fL (9.4-12.4); Monocytes # 0.5 K/mcL (0.0-1.3); Monocytes % 4.6 %; Neutrophils # 8.1 K/mcL (1.6-8.9); Platelet Count 235 K/mcL (140-400); Red Blood Count 3.16 M/mcL (3.82-4.97); Segmented Neutrophils % 82.6 %; White Blood Count 9.8 K/mcL (4.3-11.1)
[2019-03-01 06:16] LABS: Alanine Aminotransferase 17 Units/L (7-52); Albumin 2.3 g/dL (3.5-5.7); Albumin/Globulin Ratio 0.9 (1.1-2.2); Alkaline Phosphatase 242 Units/L (34-104); Aspartate Amino Transferase 22 Units/L (13-39); BUN/Creatinine Ratio 17 (6-26); Bilirubin,Total 0.6 mg/dL (0.3-1.0); Blood Urea Nitrogen 18 mg/dL (6-20); Calcium 7.3 mg/dL (8.6-10.3); Carbon Dioxide 19 mEq/L (23-29); Chloride 109 mEq/L (98-107); Globulin 2.7 g/dL (2.4-3.5); Glucose 90 mg/dL (70-105); Osmolality,Calculated 285 (280-300); Potassium 3.2 mEq/L (3.5-5.1); Sodium 137 mEq/L (136-145); eGFR For African Americans > 60 (> 60); eGFR For Non-African Americans 58 (> 60)
[2019-03-01 06:23] LABS: Hypochromasia Present (Not Present); Platelet Estimate Normal (Normal)
[2019-03-01] MEDS: *HR* Buprenorphine HCl 8 MG TAB.SUBL SL SCH ×2 (10:07→20:07)
--- NOTE | 2019-03-01 17:30 | Internal Med Progress Note ---
Hospitalist Progress Note - Encounter Date of Encounter: 03/01/19 Time of Encounter: 10:30 - Subjective Interval History: Pt this AM states she still feels a bit ill, and that she hasn't turned the corner yet. Did have fever last night. No night sweats. No N/V/D, SOB, or CP. Abd is much less tender today, though. Does feel a bit puffy from all the IV fl uids. - Exam Vitals: Temp Pulse Resp BP Pulse Ox 98.4 F 86 17 119/84 93 03/01/19 16:16 03/01/19 16:16 03/01/19 16:16 03/01/19 16:16 03/01/19 10:59 Exam: Gen.: Vitals noted. No acute distress. Sleeping but wakes easily and is fully oriented Cardiac: RRR, no murmur, +S1/S2 Pulmonary: CTA bilaterally, no wheezes, rales or rhonchi, equal chest expansion Abdomen: soft, nontender Back: b/l CVA tenderness improved today MSK: ROM intact, no joint swelling noted Extremities: no BLE edema, nontender calf, no cyanosis or clubbing Psych: Appropriate mood and behavior - Summary of Assessment and Plan Summary of Assessment and Plan: Orin Etienne is a 38 F w hx IVDU, HBV, HCV, smoker, who p/w fever, myalgias, chills, nausea, abd pain, and dysuria, found to have fever, tachycardia, leukocytosis, Na 130, Cr 1.26, TBili 2.6, dirty UA, and now BCx growing E coli, concerning for E coli UTI and pyelo causing bacteremia, sepsis, dehydration, hyponatremia, and NARENDRA. E coli bacteremia: 2/2 UTI/pyelo - Rocephin 2g daily until defervesces - switch to Keflex on discharge, likely 500 po qid to complete 7d - repeat cultures pending E coli UTI and pyelo: treatment as above Severe sepsis: SIRS 3/4 (normal RR) initially, lactate 2, w NARENDRA and hyperbili, 2/2 E coli bacteremia as above - fluid bolus prn MAP<65 Hypovolemic hyponatremia: resolved Hypokalemia: replace and monitor IVDU: w sepsis, TTE checked and negative for IE - SW consulted Hx HBV and HCV: noted, needs outpatient f/u PPx: sqh Tele: no Activity: up ad hector FEN: regular, stop MIVF Lines: PIV Consults: Code: Full Dispo: patient requires inpatient eval and management at this time, anticipate 1 more day, will be homegoing Internal Medicine: Result - Labs CBC & Chem 7: 03/01/19 05:42 03/01/19 05:42 Labs: Short CBC 03/01/19 Range/Units 05:42 WBC 9.8 (4.3-11.1) K/mcL Hgb 8.8 L (11.5-15.4) g/dL Hct 26.6 L (35.3-44.9) % Plt Count 235 (140-400) K/mcL Neutrophils # 8.1 (1.6-8.9) K/mcL BMP 03/01/19 05:42 Sodium 137 Potassium 3.2 L Chloride 109 H Carbon Dioxide 19 L BUN 18 Creatinine 1.06 Glucose 90 Calcium 7.3 L Liver Function 03/01/19 Range/Units 05:42 Total Bilirubin 0.6 (0.3-1.0) mg/dL AST 22 (13-39) Units/L ALT 17 (7-52) Units/L Alkaline Phosphatase 242 H (34-104) Units/L Albumin 2.3 L (3.5-5.7) g/dL - ABG Interpretation ABG results: PT/INR, D-dimer PT 15.0 Seconds (9.4-12.1) H 02/27/19 15:04 - Impressions Impressions Echocardiogram 02/28/19 17:42 Impressions: LVEF 60-65%. Normal LV chamber size, wall thickness and function. Normal left ventricular diastolic function. Normal right ventricular structure and function. Mild tricuspid regurgitation. Mild pulmonary hypertension. No intracardiac vegetation visualized in this study, recommend DIRK if there is clinical suspicion of endocarditis Left Ventricular Wall Motion: Rest Echo Findings All wall segments showed normal motion. Findings: Study Quality * Technically adequate exam. ECG Findings * Normal sinus rhythm. Left Ventricle * LVEF 60-65%. * Normal LV chamber size, wall thickness and function. * Normal left ventricular diastolic function. * Atypical septal motion noted. Right Ventricle * Normal right ventricular structure and function. Left Atrium * Mildly dilated left atrium. Right Atrium * Normal right atrial size. Interatrial Septum * No evidence of PFO by color Doppler. Aortic Valve * No aortic regurgitation. * No aortic stenosis. * Aortic valve not well visualized. Mitral Valve * Normal mitral valve structure. * No mitral regurgitation. * No mitral stenosis. Tricuspid Valve * Mild tricuspid regurgitation. * Mild pulmonary hypertension. * Estimated RVSP is 39 mmHg. * Estimated RA pressure is 3 mmHg. * No tricuspid stenosis. Pulmonic Valve * Trace pulmonic regurgitation. Aorta * Normally sized aortic root. Pericardium * The pericardium appears normal. IVC * Normal IVC dimensions and inspiratory collapse. Pulmonary Artery * Normal visualized portions of the main pulmonary artery. Consult Discharge Plan - Plan Referrals: Taryn Fien DO [Partnered Physician] - 03/09/19 3:00 pm (please bring ID , insurance card, and medication bottles to your first appointment. Please call within 24 hours of cancelling an appointment)
--- NOTE | 2019-03-01 17:42 | Electrocardiograph Report ---
[facility] Test Date: 2019-02-27 Pat Name: Orin Etienne Department: [id number] Room: [facility] Gender: F Tomographic Tech: : 1980 Requested By: Angle Holcomb Order Number: [id number] Reading MD: Ezra Coon Measurements Intervals [place] Rate: 89 P: 58 TN: 169 QRS: 58 QRSD: 79 T: 57 QT: 312 QTc: 380 Interpretive Statements Sinus rhythm Electronically Signed On 03-01-2019 17:41:23 EDT by Ezra oCon
[2019-03-01] MEDS ORDERED: cefTRIAXone 2,000 MG in Water for inj. (sterile) 20 ML IVP SCH (18:00)
[2019-03-02] MEDS: *HR* Heparin 5,000 UNIT/ML VIAL SQ SCH (05:19)
[2019-03-02 05:37] LABS: BUN/Creatinine Ratio 16 (6-26); Blood Urea Nitrogen 15 mg/dL (6-20); Calcium 7.9 mg/dL (8.6-10.3); Carbon Dioxide 20 mEq/L (23-29); Chloride 109 mEq/L (98-107); Glucose 95 mg/dL (70-105); Magnesium 1.8 mg/dL (1.6-2.6); Osmolality,Calculated 281 (280-300); Sodium 135 mEq/L (136-145); eGFR For African Americans > 60 (> 60); eGFR For Non-African Americans > 60 (> 60)
[2019-03-02 05:39] LABS: Hematocrit 26.8 % (35.3-44.9); Mean Corpuscular HGB Conc 33.6 g/dL (31.6-35.5); Mean Corpuscular Hemoglobin 27.6 pg (28.0-33.3); Mean Corpuscular Volume 82.2 fL (83.0-100.0); Mean Platelet Volume 9.9 fL (9.4-12.4); Platelet Count 303 K/mcL (140-400); Red Blood Count 3.26 M/mcL (3.82-4.97); Red Cell Distribution Width 14.4 % (11.5-14.5); White Blood Count 7.3 K/mcL (4.3-11.1)
[2019-03-02 08:26] VITALS: BP 116/79
--- NOTE | 2019-03-02 08:32 | Discharge Summary ---
- NOTES TO OUTPATIENT PROVIDER Notes to Outpatient Provider: E coli UTI, pyelo, and bacteremia. Improved, d/c on Cipro 500 bid. Social issues include homeless and active IVDU. Date of Encounter: 03/02/19 Time of Encounter: 08:28 Hospital course: Dear Doctors, I recently had the opportunity to care for this patient during their recent hospital stay at [facility]. Orin Etienne is a 38 F w hx IVDU, HBV, HCV, smoker, who presented at time of admission with fever, myalgias, chills, nausea, abd pain, and dysuria. She was found to have fever, tachycardia, leukocytosis, Na 130, Cr 1.26, TBili 2.6, dirty UA, and now BCx growing E coli, concerning for E coli UTI and pyelo causing bacteremia, severe sepsis, dehydration, hyponatremia, and NARENDRA. In the hospital, she was treated with Rocephin and fluids with significant improvement in her symptoms. She defervesced and pain improved. Lytes and creatinine normalized. TTE unremarkable for valve vegetations, and repeat cultures were no growth x48h. She was converted to Cipro 500 bid based on sensitivities, and will complete an 8 day course. 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 Please contact me with any questions or concerns regarding their hospital stay. Sincerely, Luiz Queen MD - Discharge Medications Prescriptions: New Ciprofloxacin [Cipro] 500 mg PO BID #10 tablet Continued Buprenorphine HCl/Naloxone HCl [Suboxone 8 mg-2 mg Sl Film] 1 each SL BID Home Medications: Buprenorphine HCl/Naloxone HCl [Suboxone 8 mg-2 mg Sl Film] 1 each SL BID 02/27/19 [History] Ciprofloxacin [Cipro] 500 mg PO BID #10 tablet 03/02/19 [Rx] Allergies/Adverse Reactions: Allergy/AdvReac Type Severity Reaction Status Date / Time nitrofurantoin Allergy See Verified 02/27/19 15:22 [From Macrobid] Comments Date of admission: 02/27/19 20:31 Primary care physician: PCP NONE Consults: 02/27/19 21:30 Consult to Nutrition [CONS] Routine Comment: Consulting Provider: NUTRITION Reason for Dietary Consult: MST Score Consult to Skating Rink Manager [CONS] Routine Reason for SW Consult: Patient homeless - Constitutional Vitals: Temp Pulse Resp BP Pulse Ox 98.7 F 75 18 116/79 97 03/02/19 07:24 03/02/19 07:24 03/02/19 07:24 03/02/19 07:24 03/02/19 07:24 Exam: Gen.: Vitals noted. No acute distress. Cardiac: RRR, no murmur, +S1/S2 Pulmonary: CTA bilaterally, no wheezes, rales or rhonchi, equal chest expansion Abdomen: soft, nontender Back: b/l CVA tenderness improved MSK: ROM intact, no joint swelling noted Extremities: no BLE edema, nontender calf, no cyanosis or clubbing Psych: Appropriate mood and behavior, awake and fully oriented - Patient Status Disposition: Home, Self-Care Condition: Fair Functional capacity at discharge: independent ambulation Overall status at discharge: patient is back to baseline - Discharge Instructions Instructions: Ciprofloxacin (By mouth), Urinary Tract Infection in Women (DC), Sepsis (DC) Follow Up With: Taryn Fine DO [Partnered Physician] - 03/09/19 3:00 pm (please bring ID , insurance card, and medication bottles to your first appointment. Please call within 24 hours of cancelling an appointment) - Diet and Activity Activity: resume usual activities as tolerated (except IV drug use) Diet: advance to your usual diet
[2019-03-02] MEDS: *HR* Buprenorphine HCl 8 MG TAB.SUBL SL SCH (08:37)
== END 2019-03-02 10:43 | disposition home or self-care (01) | DRG 720 ==
LOC: EMEROOARM 13:59 → 2NENU 13:59 → SUATTDRO 20:31 → 2NENU 20:50
PROVIDERS: ADMIT Internal Medicine; ATTEND Internal Medicine